=== PATIENT | male | born 1965 | race Caucasian/White ===

== ENCOUNTER → 2022-06-11 | Outpatient (CLI) | payer BC, SELFPAY ==
--- NOTE | 2022-06-11 06:55 | MRI_ITS ---
HISTORY: Pain, lumbosacral region radiculopathy TECHNIQUE: Multiplanar and multisequence MR images of the lumbar spine were obtained without intravenous contrast. 129 images. COMPARISON: XR same day. FINDINGS: VERTEBRAE: Minimal chronic anterior wedging of T11 and T12. Lumbar vertebral body heights maintained. Degenerative bone marrow endplate changes of L3-4, L4-5, and L5-S1. 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 CONUS: Normal morphology and position of the conus medullaris at L1-2. INTERVERTEBRAL DISCS: T12-L1: No significant posterior disc protrusion, central canal stenosis, or foraminal narrowing based on the sagittal images. L1-2, L2-3: No significant posterior disc protrusion, central canal stenosis, or foraminal narrowing. L3-4: Mild posterior disc bulge osteophyte complex and facet arthropathy superimposed on a developmentally narrow spinal canal with prominent dorsal epidural fat resulting in moderate narrowing of the thecal sac and moderate bilateral foraminal narrowing with abutment of the bilateral L3 nerve roots. L4-5: Moderate posterior disc protrusion with facet arthropathy resulting in mild-moderate bilateral foraminal narrowing. Ventral epidural lipomatosis at L4 displacing the thecal sac posteriorly and resulting in moderate narrowing of the thecal sac. L5-S1: Mild disc bulge with facet arthropathy resulting in mild bilateral foraminal narrowing with abutment of the bilateral L5 nerve roots. Ventral and dorsal epidural lipomatosis at this level resulting in right ventral deviation of the thecal sac and mild narrowing of the thecal sac. SOFT TISSUES: Mild posterior subcutaneous edema. MRI/Spine Lumbar (Routine) IMPRESSION: Degenerative disc disease of L3-4 superimposed on a developmentally narrow spinal canal and prominent dorsal epidural fat resulting in moderate narrowing of the thecal sac and and bilateral foramina. Epidural lipomatosis with displacement of the thecal sac posteriorly and moderate narrowing of the thecal sac at L4 and mild narrowing of the thecal sac at L5-S1. Degenerative disc and facet disease with bilateral foraminal narrowing at these levels. Grade 1 anterolisthesis of L5-S1, which maybe secondary to spondylolysis. Electronically Signed: Fouzia Tyler MD at 15:37 EST ,
--- NOTE | 2022-06-11 08:00 | RAD_ITS ---
INDICATION: PAIN EXAMINATION/TECHNIQUE: X-RAY - 6 views of the lumbar spine were obtained including flexion and extension views. COMPARISON: None. FINDINGS: VERTEBRAE: Preserved vertebral body height. No fracture. The pedicles appear intact. Exaggerated lordosis of the lumbar spine. No significant facet arthropathy. DISCS: Severe narrowing of L3-L4 and to lesser extent L4-L5 disc spaces. 11 mm anterolisthesis of L5 over S1 with no significant change on the flexion and extension views. INCLUDED ABDOMEN: Included bowel gas pattern is non-obstructive. RAD/L/S Spine Comp/w Bending Views IMPRESSION: Degenerative changes of the lumbar spine as described above. Electronically Signed: Joselo Gold MD at 13:18 EST ,
== END | disposition home or self-care (01) ==
DX: M54.17 Radiculopathy, lumbosacral region (principal); M51.26 Other intervertebral disc displacement, lumbar region; M43.17 Spondylolisthesis, lumbosacral region
CPT/HCPCS: 72114; 72148